=== PATIENT | female | born 1940 | race African-American/Black ===

== ENCOUNTER → 2018-02-19 | Outpatient (CLI) | payer MEDICARE, BC ==
[2018-02-19 11:29] LABS: Basophils # (auto) 0.1 uL; Basophils % (auto) 1.1 % (0.0-2.0); Eosinophils # (auto) 0.1 uL; Eosinophils % (auto) 1.5 % (0.0-7.0); Hematocrit 40.4 % (36.0-46.0); Hemoglobin 13.2 g/dL (12.2-16.2); Lymphocytes # (auto) 2.3 uL; Lymphocytes % (auto) 38.2 % (10.0-50.0); Mean Corpuscular Hgb Conc. 32.6 g/dL (32.0-36.0); Monocytes # (auto) 0.4 uL; Monocytes % (auto) 7.4 % (0.0-12.0); Neutrophils # (auto) 3.1 uL; Neutrophils % (auto) 51.8 % (37.0-80.0); Platelet Count (auto) 340 10^3/uL (140-450); Red Blood Cells 4.54 10^6/uL (4.0-5.20); Red Cell Distribution Width 15.8 % (11.8-14.3)
[2018-02-19 12:35] LABS: Albumin 3.6 g/dL (3.4-5.0); Bilirubin, Total 0.7 mg/dL (0.2-1.0); Calcium 9.2 mg/dL (8.5-10.1); Potassium 3.6 mmol/L (3.5-5.1); Total Protein 7.9 g/dL (6.4-8.2)
[2018-02-19 13:59] LABS: Ferritin 103.2 ng/mL (10-322)
[2018-02-19 14:01] LABS: Folate (Folic Acid) 14.64 ng/mL (5.38-24)
[2018-02-19 14:55] LABS: % Iron Saturation 25.8 % (15-50)
== END | disposition home or self-care (01) ==
LOC: LAB 10:11
PROVIDERS: ATTEND Psychiatry & Neurology Neurology
DX: E61.1 Iron deficiency (principal); I11.0 Hypertensive heart disease with heart failure; I50.9 Heart failure, unspecified
CPT/HCPCS: 36415; 80053; 82607; 82728; 82746; 82951; 83540; 83550; 84155; 84165; 85025

== ENCOUNTER 2018-02-20 07:18 | Emergency (ER) | payer MEDICARE, OTHER ==
[~2018-02-20] VITALS: Ht 165.1 cm; Wt 90.7 kg
[2018-02-20 08:29] LABS: Basophils # (auto) 0.1 uL; Eosinophils # (auto) 0.1 uL; Eosinophils % (auto) 1.7 % (0.0-7.0); Hematocrit 38.5 % (36.0-46.0); Hemoglobin 12.7 g/dL (12.2-16.2); Lymphocytes # (auto) 3.1 uL; Mean Corpuscular Hemoglobin 29.4 pg (28.0-32.0); Mean Corpuscular Volume 89.1 fL (80.0-100.0); Monocytes # (auto) 0.5 uL; Monocytes % (auto) 7.8 % (0.0-12.0); Neutrophils # (auto) 3.1 uL; Neutrophils % (auto) 44.5 % (37.0-80.0); Nucleated Red Blood Cells % 0.1 %; Platelet Count (auto) 336 10^3/uL (140-450); Red Blood Cells 4.32 10^6/uL (4.0-5.20); Red Cell Distribution Width 15.7 % (11.8-14.3); White Blood Cell 6.9 10^3/uL (4.4-10.8)
[2018-02-20 08:41] LABS: Alanine Aminotransferase 19 U/L (13-56); Albumin 3.4 g/dL (3.4-5.0); Alkaline Phosphatase 88 U/L (45-117); Anion Gap 10 (5-15); Aspartate Aminotransferase 13 U/L (15-37); BUN/Creatinine Ratio 9.2; Bilirubin, Total 0.5 mg/dL (0.2-1.0); Blood Urea Nitrogen 13 mg/dL (7-18); Calcium 8.7 mg/dL (8.5-10.1); Carbon Dioxide 26 mmol/L (21-32); Chloride 108 mmol/L (98-107); GFR African American 47 mL/min; GFR Non-African American 39 mL/min; Glucose 108 mg/dL (74-106); Potassium 3.6 mmol/L (3.5-5.1); Sodium 144 mmol/L (136-145); Total Protein 7.4 g/dL (6.4-8.2)
[2018-02-20] MEDS ORDERED: SODIUM CHLORIDE 0.9% 1,000 ML IV ONE (08:50)
[2018-02-20] MEDS ORDERED: PROMETHAZINE HCL 25 MG/ML 1ML IV ONE (09:00)
[2018-02-20] MEDS ORDERED: CYANOCOBALAMIN 500 MCG TAB PO ONE (09:00)
[2018-02-20] MEDS ORDERED: KETOROLAC TROMETH 30 MG/ML 1ML VIAL IV ONE (09:00)
[2018-02-20 11:30] VITALS: BP 159/81
[2018-02-20] MEDS ORDERED: THIAMINE INJ 100 MG, MULTIPLE VITAMIN 10 ML, FOLIC ACID 1 MG, MAGNESIUM SULF SDV 50% 8 ... IV ONE ×5 (12:00)
[2018-02-20 12:10] LABS: Urine Bacteria FEW /hpf (None Seen); Urine Blood Negative /uL (Negative); Urine Specific Gravity 1.007 (1.001-1.035); Urine WBC 4 /hpf (0 - 5)
== END 2018-02-20 12:58 | disposition home or self-care (01) ==
LOC: ER 07:18
DX: M54.12 Radiculopathy, cervical region (principal); N39.0 Urinary tract infection, site not specified; I11.0 Hypertensive heart disease with heart failure; I50.9 Heart failure, unspecified; Z90.89 Acquired absence of other organs
CPT/HCPCS: 36415; 71046; 72125; 80053; 81001; 84484; 85025; 93005; 94761; 96365; 96366; 96375; 99285; J1885; J2550; J3411; J3475; J7030

== ENCOUNTER 2018-02-24 10:41 | Emergency (ER) | payer MEDICARE, OTHER ==
[~2018-02-24] VITALS: Ht 165.1 cm; Wt 90.7 kg
[2018-02-24 11:51] VITALS: BP 168/80
== END 2018-02-24 12:39 | disposition home or self-care (01) ==
LOC: ER 10:45
DX: L23.89 Allergic contact dermatitis due to other agents (principal); I11.0 Hypertensive heart disease with heart failure; I50.9 Heart failure, unspecified; E78.5 Hyperlipidemia, unspecified; Z90.49 Acquired absence of other specified parts of digestive tract; W57.XXXA Bitten or stung by nonvenomous insect and other nonvenomous arthropods, initial encounter; Y93.89 Activity, other specified; Y99.8 Other external cause status; Y92.89 Other specified places as the place of occurrence of the external cause

== ENCOUNTER → 2018-04-29 | Outpatient (CLI) | payer MEDICARE, OTHER ==
[2018-04-29 13:01] LABS: % Iron Saturation 27.8 % (15-50)
== END | disposition home or self-care (01) ==
LOC: LAB 11:44
PROVIDERS: ATTEND Psychiatry & Neurology Neurology
DX: E61.1 Iron deficiency (principal)
CPT/HCPCS: 82728; 83540; 83550

== ENCOUNTER 2018-05-08 14:36 | Emergency (ER) | payer MEDICARE, OTHER ==
[~2018-05-08] VITALS: Ht 165.1 cm; Wt 90.7 kg
[2018-05-08 14:46] VITALS: BP 152/62
== END 2018-05-08 17:40 | disposition left against medical advice (07) ==
LOC: ER 14:36
DX: J00 Acute nasopharyngitis [common cold] (principal); Z53.21 Procedure and treatment not carried out due to patient leaving prior to being seen by health care provider

== ENCOUNTER 2018-06-04 11:17 | Emergency (ER) | payer MEDICARE, OTHER ==
[~2018-06-04] VITALS: Ht 165.1 cm; Wt 90.7 kg
[2018-06-04 11:31] VITALS: BP 173/75
[2018-06-04] MEDS ORDERED: KETOROLAC TROMETH 60MG/2ML VIAL IM ONE (12:30)
== END 2018-06-04 13:02 | disposition home or self-care (01) ==
LOC: ER 11:17
DX: M48.02 Spinal stenosis, cervical region (principal); M54.12 Radiculopathy, cervical region; E78.5 Hyperlipidemia, unspecified; I10 Essential (primary) hypertension; Z90.49 Acquired absence of other specified parts of digestive tract
CPT/HCPCS: 93005; 96372; 99283; J1885

== ENCOUNTER 2018-06-21 11:42 | Emergency (ER) | payer MEDICARE, OTHER ==
[~2018-06-21] VITALS: Ht 165.1 cm; Wt 93.9 kg
[2018-06-21 13:25] LABS: Basophils # (auto) 0.1 uL; Eosinophils # (auto) 0.1 uL; Eosinophils % (auto) 1.5 % (0.0-7.0); Hematocrit 42.5 % (36.0-46.0); Hemoglobin 13.8 g/dL (12.2-16.2); Lymphocytes # (auto) 3.9 uL; Lymphocytes % (auto) 50.3 % (10.0-50.0); Mean Corpuscular Hgb Conc. 32.4 g/dL (32.0-36.0); Mean Corpuscular Volume 89.5 fL (80.0-100.0); Monocytes # (auto) 0.5 uL; Monocytes % (auto) 6.2 % (0.0-12.0); Neutrophils # (auto) 3.1 uL; Nucleated Red Blood Cells % 0.1 %; Platelet Count (auto) 298 10^3/uL (140-450); Red Blood Cells 4.75 10^6/uL (4.0-5.20); Red Cell Distribution Width 15.7 % (11.8-14.3); White Blood Cell 7.7 10^3/uL (4.4-10.8)
[2018-06-21 13:37] LABS: Alanine Aminotransferase 22 U/L (13-56); Albumin 3.7 g/dL (3.4-5.0); Anion Gap 10 (5-15); Aspartate Aminotransferase 10 U/L (15-37); BUN/Creatinine Ratio 8.5; Blood Urea Nitrogen 13 mg/dL (7-18); Calcium 8.8 mg/dL (8.5-10.1); Carbon Dioxide 22 mmol/L (21-32); Chloride 105 mmol/L (98-107); GFR African American 42 mL/min; GFR Non-African American 35 mL/min; Glucose 104 mg/dL (74-106); Potassium 3.8 mmol/L (3.5-5.1); Sodium 137 mmol/L (136-145)
[2018-06-21] MEDS: KETOROLAC TROMETH 60MG/2ML VIAL IM ONE (14:20)
[2018-06-21 14:24] LABS: Alkaline Phosphatase 90 U/L (45-117); Bilirubin, Total 0.6 mg/dL (0.2-1.0); Total Protein 7.7 g/dL (6.4-8.2)
[2018-06-21 15:10] VITALS: BP 146/56
== END 2018-06-21 15:11 | disposition home or self-care (01) ==
LOC: ER 11:42
DX: G89.4 Chronic pain syndrome (principal); E78.5 Hyperlipidemia, unspecified; I10 Essential (primary) hypertension; Z90.89 Acquired absence of other organs
CPT/HCPCS: 36415; 71046; 80053; 84484; 85025; 93005; 96372; 99284; J1885

== ENCOUNTER 2018-07-27 12:54 | Emergency (ER) | payer BC, MEDICARE ==
[~2018-07-27] VITALS: Ht 165.1 cm; Wt 90.7 kg
[2018-07-27 13:15] VITALS: BP 148/58
== END 2018-07-27 22:29 | disposition home or self-care (01) ==
LOC: ER 12:54
DX: S73.102A Unspecified sprain of left hip, initial encounter (principal); E78.5 Hyperlipidemia, unspecified; I10 Essential (primary) hypertension; Z90.49 Acquired absence of other specified parts of digestive tract; W18.39XA Other fall on same level, initial encounter; Y93.89 Activity, other specified; Y99.8 Other external cause status; Y92.89 Other specified places as the place of occurrence of the external cause
CPT/HCPCS: 73700

== ENCOUNTER 2018-10-04 13:49 | Emergency (ER) | payer BC, MEDICARE ==
[~2018-10-04] VITALS: Ht 165.1 cm; Wt 90.7 kg
[2018-10-04 13:55] VITALS: BP 154/71
== END 2018-10-04 15:31 | disposition left against medical advice (07) ==
LOC: ER 13:50
DX: R21 Rash and other nonspecific skin eruption (principal); Z53.21 Procedure and treatment not carried out due to patient leaving prior to being seen by health care provider

== ENCOUNTER 2018-10-05 10:09 | Emergency (ER) | payer BC, MEDICARE, OTHER ==
[~2018-10-05] VITALS: Ht 165.1 cm; Wt 90.7 kg
[2018-10-05] MEDS ORDERED: MORPHINE SULF INJ 2 MG/ML SYRINGE 1ML IM ONE (11:00)
[2018-10-05] MEDS ORDERED: ACETAMINOPHEN 500 MG TAB PO ONE (11:00)
[2018-10-05] MEDS ORDERED: KETOROLAC TROMETH 60MG/2ML VIAL IM ONE (12:15)
[2018-10-05 13:17] VITALS: BP 142/70
== END 2018-10-05 13:19 | disposition home or self-care (01) ==
LOC: ER 10:13
DX: M79.605 Pain in left leg (principal); M79.604 Pain in right leg; I10 Essential (primary) hypertension; E78.5 Hyperlipidemia, unspecified; G89.29 Other chronic pain; M54.5 Low back pain; Z90.89 Acquired absence of other organs; Z90.49 Acquired absence of other specified parts of digestive tract
CPT/HCPCS: 72170; 73552; 73590; 93970; 96372; 99284; J1885

== ENCOUNTER 2019-03-20 14:33 | Emergency (ER) | payer MEDICARE, OTHER ==
[~2019-03-20] VITALS: Ht 165.1 cm; Wt 90.7 kg
[2019-03-20 15:22] VITALS: BP 138/70
[2019-03-20] MEDS ORDERED: ONDANSETRON ODT 4 MG TAB PO ONE (16:15)
[2019-03-20] MEDS ORDERED: HYDROmorphone HCL 2 MG/ML VL IM ONE (16:15)
== END 2019-03-20 16:46 | disposition home or self-care (01) ==
LOC: ER 14:33
DX: S46.912A Strain of unspecified muscle, fascia and tendon at shoulder and upper arm level, left arm, initial encounter (principal); M79.7 Fibromyalgia; G89.4 Chronic pain syndrome; I10 Essential (primary) hypertension; E78.5 Hyperlipidemia, unspecified; Z88.6 Allergy status to analgesic agent; X58.XXXA Exposure to other specified factors, initial encounter; Y93.89 Activity, other specified; Y92.89 Other specified places as the place of occurrence of the external cause; Y99.8 Other external cause status
CPT/HCPCS: 93005; 96372; 99283; J1170; Q0162

== ENCOUNTER 2019-08-17 16:12 | Emergency (ER) | payer MEDICARE ==
[~2019-08-17] VITALS: Ht 165.1 cm; Wt 92.5 kg
[2019-08-17 16:25] VITALS: BP 145/83
== END 2019-08-17 18:35 | disposition left against medical advice (07) ==
LOC: ER 16:12
DX: M25.552 Pain in left hip (principal); Z53.21 Procedure and treatment not carried out due to patient leaving prior to being seen by health care provider; W19.XXXA Unspecified fall, initial encounter; Y93.89 Activity, other specified; Y92.89 Other specified places as the place of occurrence of the external cause; Y99.8 Other external cause status

== ENCOUNTER 2019-08-18 11:54 | Emergency (ER) | payer MEDICARE ==
[~2019-08-18] VITALS: Ht 165.1 cm; Wt 92.5 kg
[2019-08-18 12:19] VITALS: BP 150/57
== END 2019-08-18 14:22 | disposition home or self-care (01) ==
LOC: ER 11:54
DX: M70.62 Trochanteric bursitis, left hip (principal); E78.5 Hyperlipidemia, unspecified; I10 Essential (primary) hypertension
CPT/HCPCS: 73502

== ENCOUNTER → 2019-10-29 | Emergency (ER) | payer MEDICARE ==
[~2019-10-29] VITALS: Ht 165.1 cm; Wt 90.7 kg
[2019-10-29 17:54] VITALS: BP 140/62
== END | disposition home or self-care (01) ==
LOC: ER 17:23
DX: M25.562 Pain in left knee (principal); M25.462 Effusion, left knee; M54.16 Radiculopathy, lumbar region; M19.90 Unspecified osteoarthritis, unspecified site; E78.5 Hyperlipidemia, unspecified; I10 Essential (primary) hypertension; Z88.5 Allergy status to narcotic agent
CPT/HCPCS: 93971

== ENCOUNTER 2019-12-26 11:25 | Emergency (ER) | payer MEDICARE ==
[~2019-12-26] VITALS: Ht 165.1 cm; Wt 90.7 kg
[2019-12-26 12:13] VITALS: BP 157/62
[2019-12-26] MEDS ORDERED: KETOROLAC TROMETH 60MG/2ML VIAL IM ONE (12:30)
== END 2019-12-26 13:04 | disposition home or self-care (01) ==
LOC: ER 11:25
DX: M25.562 Pain in left knee (principal); M25.462 Effusion, left knee; M54.16 Radiculopathy, lumbar region; N39.0 Urinary tract infection, site not specified; M19.90 Unspecified osteoarthritis, unspecified site; E78.5 Hyperlipidemia, unspecified; I10 Essential (primary) hypertension; Z88.5 Allergy status to narcotic agent
CPT/HCPCS: 96372; 99283; J1885

== ENCOUNTER 2020-02-16 16:02 | Emergency (ER) | payer MEDICARE ==
[~2020-02-16] VITALS: Ht 165.1 cm; Wt 89.8 kg
[2020-02-16] MEDS ORDERED: ONDANSETRON HCL 4 MG/2 ML VIAL IV ONE (16:30)
[2020-02-16 17:48] LABS: Albumin 4.4 g/dL (3.4-5.0); Calcium 10.5 mg/dL (8.5-10.1)
[2020-02-16 17:52] LABS: BUN/Creatinine Ratio 8.5; Bilirubin, Total 0.8 mg/dL (0.2-1.0); Total Protein 8.6 g/dL (6.4-8.2)
[2020-02-16 18:00] LABS: Potassium 2.9 mmol/L (3.5-5.1)
[2020-02-16 18:08] LABS: Basophils # (auto) 0.1 10 ^3/uL (0-0.2); Basophils % (auto) 1.3 % (0.0-2.0); Eosinophils # (auto) 0 10 ^3/uL (0-0.8); Eosinophils % (auto) 0.1 % (0.0-7.0); Hemoglobin 14.8 g/dL (12.2-16.2); Lymphocytes # (auto) 1.9 10 ^3/uL (0.4-5.4); Lymphocytes % (auto) 22.4 % (10.0-50.0); Mean Corpuscular Hemoglobin 28.5 pg (28.0-32.0); Mean Corpuscular Hgb Conc. 32.2 g/dL (32.0-36.0); Mean Corpuscular Volume 88.5 fL (80.0-100.0); Monocytes # (auto) 0.5 10 ^3/uL (0-1.3); Monocytes % (auto) 6.4 % (0.0-12.0); Neutrophils # (auto) 5.8 10 ^3/uL (1.6-8.6); Neutrophils % (auto) 69.8 % (37.0-80.0); Nucleated Red Blood Cells % 0.2 %; Platelet Count (auto) 334 10^3/uL (140-450); Red Cell Distribution Width 15.3 % (11.8-14.3); White Blood Cell 8.4 10^3/uL (4.4-10.8)
[2020-02-16] MEDS ORDERED: POTASSIUM CHL 20MEQ/100ML 100 ML IV ONE (18:15)
[2020-02-16 22:56] LABS: Hemoglobin 14.4 g/dL (12.2-16.2)
[2020-02-16 23:10] LABS: INR 1.02 (0.9-1.15); Partial Thromboplastin Time 28.2 sec (23.0-31.2)
[2020-02-17 01:00] VITALS: BP 135/51
[2020-02-17] MEDS ORDERED: ONDANSETRON HCL 4 MG/2 ML VIAL IV ONE (01:00)
[2020-02-17] MEDS ORDERED: SODIUM CHLORIDE 0.9% 1,000 ML IV ONE (01:00)
== END 2020-02-17 02:00 | disposition home or self-care (01) ==
LOC: ER 16:02
DX: E87.6 Hypokalemia (principal); R11.2 Nausea with vomiting, unspecified; R10.9 Unspecified abdominal pain; M19.90 Unspecified osteoarthritis, unspecified site; J44.9 Chronic obstructive pulmonary disease, unspecified; E78.5 Hyperlipidemia, unspecified; I10 Essential (primary) hypertension; Z88.5 Allergy status to narcotic agent
CPT/HCPCS: 36415; 74176; 80053; 83690; 85014; 85018; 85025; 85610; 85730; 96361; 96365; 96366; 96375; 96376; 99285; J2405; J3480; 93005

== ENCOUNTER 2021-02-08 13:15 | Emergency (ER) | payer MEDICARE, OTHER, BC ==
[~2021-02-08] VITALS: Ht 165.1 cm; Wt 90.7 kg
[2021-02-08 16:40] VITALS: BP 130/68
[2021-02-08] MEDS ORDERED: methylPREDNISolone SOD SUCC 125 MG/2 ML VL IM ONE (17:00)
== END 2021-02-08 17:18 | disposition home or self-care (01) ==
LOC: ER 13:15
DX: G89.29 Other chronic pain (principal); M79.642 Pain in left hand; M79.641 Pain in right hand; J44.9 Chronic obstructive pulmonary disease, unspecified; I10 Essential (primary) hypertension; E78.5 Hyperlipidemia, unspecified; Z90.49 Acquired absence of other specified parts of digestive tract; Z86.69 Personal history of other diseases of the nervous system and sense organs; Z90.89 Acquired absence of other organs; Z88.5 Allergy status to narcotic agent; Z88.8 Allergy status to other drugs, medicaments and biological substances
CPT/HCPCS: 93005; 96372; 99283; J2930

== ENCOUNTER 2021-03-15 16:18 | Emergency (ER) | payer MEDICARE, OTHER, BC ==
[~2021-03-15] VITALS: Ht 165.1 cm; Wt 77.1 kg
[2021-03-15] MEDS ORDERED: methylPREDNISolone SOD SUCC 125 MG/2 ML VL IV ONE (16:45)
[2021-03-15 16:56] LABS: Basophils # (auto) 0.1 10 ^3/uL (0-0.2); Basophils % (auto) 0.8 % (0.0-2.0); Eosinophils # (auto) 0.2 10 ^3/uL (0-0.8); Eosinophils % (auto) 2.4 % (0.0-7.0); Hematocrit 34.3 % (36.0-46.0); Lymphocytes # (auto) 2.6 10 ^3/uL (0.4-5.4); Lymphocytes % (auto) 38.4 % (10.0-50.0); Mean Corpuscular Hemoglobin 28.6 pg (28.0-32.0); Mean Corpuscular Hgb Conc. 32.1 g/dL (32.0-36.0); Monocytes # (auto) 0.7 10 ^3/uL (0-1.3); Monocytes % (auto) 9.6 % (0.0-12.0); Neutrophils # (auto) 3.3 10 ^3/uL (1.6-8.6); Neutrophils % (auto) 48.8 % (37.0-80.0); Red Blood Cells 3.85 10^6/uL (4.0-5.20); Red Cell Distribution Width 16.8 % (11.8-14.3); White Blood Cell 6.9 10^3/uL (4.4-10.8)
[2021-03-15 17:10] LABS: Alanine Aminotransferase 22 U/L (13-56); Anion Gap 7 (5-15); Aspartate Aminotransferase 20 U/L (15-37); BUN/Creatinine Ratio 9.5; Blood Urea Nitrogen 18 mg/dL (7-18); Calcium 9.2 mg/dL (8.5-10.1); Carbon Dioxide 27 mmol/L (21-32); Chloride 110 mmol/L (98-107); GFR African American 33 mL/min; GFR Non-African American 27 mL/min; Glucose 96 mg/dL (74-106); Magnesium 2.5 mg/dL (1.6-2.6); Potassium 3.9 mmol/L (3.5-5.1); Sodium 144 mmol/L (136-145)
[2021-03-15 17:15] LABS: Alkaline Phosphatase 103 U/L (45-117); Bilirubin, Total 0.3 mg/dL (0.2-1.0); Total Protein 6.7 g/dL (6.4-8.2)
[2021-03-15 18:00] VITALS: BP 122/58
[2021-03-15] MEDS ORDERED: methylPREDNISolone SOD SUCC 125 MG/2 ML VL IM ONE (18:00)
== END 2021-03-15 18:15 | disposition home or self-care (01) ==
LOC: ER 16:18
DX: J20.9 Acute bronchitis, unspecified (principal); J44.9 Chronic obstructive pulmonary disease, unspecified; I10 Essential (primary) hypertension; E78.5 Hyperlipidemia, unspecified; Z90.49 Acquired absence of other specified parts of digestive tract; Z90.89 Acquired absence of other organs
CPT/HCPCS: 36415; 71045; 80053; 83735; 83880; 84484; 85025; 93005; 99285; J2930

== ENCOUNTER 2021-06-16 15:42 | Emergency (ER) | payer MEDICARE ==
[~2021-06-16] VITALS: Ht 165.1 cm; Wt 81.6 kg
[2021-06-16] MEDS ORDERED: KETOROLAC TROMETH 60MG/2ML VIAL IM ONE (19:45)
[2021-06-16] MEDS ORDERED: methylPREDNISolone SOD SUCC 125 MG/2 ML VL IM ONE (19:45)
[2021-06-16 20:00] VITALS: BP 151/60
== END 2021-06-16 21:21 | disposition home or self-care (01) ==
LOC: ER 15:42
DX: G89.4 Chronic pain syndrome (principal); G62.89 Other specified polyneuropathies; M19.90 Unspecified osteoarthritis, unspecified site; E66.8 Other obesity; Z68.30 Body mass index [BMI] 30.0-30.9, adult
CPT/HCPCS: 96372; 99284; J1885; J2930

== ENCOUNTER 2021-10-22 13:47 | Emergency (ER) | payer MEDICARE ==
[~2021-10-22] VITALS: Ht 165.1 cm; Wt 81.6 kg
[2021-10-22] MEDS ORDERED: methylPREDNISolone SOD SUCC 125 MG/2 ML VL IM ONE (18:30)
[2021-10-22 18:35] VITALS: BP 155/73
[2021-10-22] MEDS ORDERED: MELO1TAB73 PO (18:38)
[2021-10-22] MEDS ORDERED: PRED20TA2 PO (18:38)
== END 2021-10-22 18:49 | disposition home or self-care (01) ==
LOC: ER 13:47
DX: M06.9 Rheumatoid arthritis, unspecified (principal); I10 Essential (primary) hypertension; E11.9 Type 2 diabetes mellitus without complications; E78.5 Hyperlipidemia, unspecified; J44.9 Chronic obstructive pulmonary disease, unspecified; Z90.49 Acquired absence of other specified parts of digestive tract; Z90.89 Acquired absence of other organs; Z79.899 Other long term (current) drug therapy; Z88.5 Allergy status to narcotic agent
CPT/HCPCS: 96372; 99283; J2930

== ENCOUNTER 2023-02-23 14:08 | Emergency (ER) | payer MEDICARE ==
[~2023-02-23] VITALS: Ht 162.6 cm; Wt 85.0 kg
[~2023-02-23 14:08] MED LIST: MELO7.5T7 PO; PRED20TA2 PO
[2023-02-23 15:25] LABS: Basophils # (auto) 0 10 ^3/uL (0-0.2); Basophils % (auto) 0.3 % (0.0-2.0); Eosinophils # (auto) 0.2 10 ^3/uL (0-0.8); Eosinophils % (auto) 2.3 % (0.0-7.0); Hematocrit 38.8 % (36.0-46.0); Hemoglobin 12.9 g/dL (12.2-16.2); Lymphocytes # (auto) 2.7 10 ^3/uL (0.4-5.4); Lymphocytes % (auto) 37.8 % (10.0-50.0); Mean Corpuscular Hemoglobin 29.1 pg (28.0-32.0); Mean Corpuscular Hgb Conc. 33.2 g/dL (32.0-36.0); Mean Corpuscular Volume 87.5 fL (80.0-100.0); Monocytes # (auto) 0.5 10 ^3/uL (0-1.3); Monocytes % (auto) 6.2 % (0.0-12.0); Neutrophils # (auto) 3.9 10 ^3/uL (1.6-8.6); Neutrophils % (auto) 53.4 % (37.0-80.0); Red Blood Cells 4.43 10^6/uL (4.0-5.20); Red Cell Distribution Width 16.5 % (11.8-14.3); White Blood Cell 7.2 10^3/uL (4.4-10.8)
[2023-02-23 15:48] LABS: Alanine Aminotransferase 10 U/L (7-40); Albumin 4.3 g/dL (3.2-4.8); Alkaline Phosphatase 109 U/L (46-116); Anion Gap 9.2 (5-15); Aspartate Aminotransferase < 8 U/L (13-40); BUN/Creatinine Ratio 10.1 (10.0-20.0); Bilirubin, Total 0.5 mg/dL (0.2-1.0); Blood Urea Nitrogen 12 mg/dL (9-23); Calcium 9.7 mg/dL (8.7-10.4); Carbon Dioxide 24.8 mmol/L (20-30); Chloride 109 mmol/L (98-107); Glucose 130 mg/dL (74-106); Potassium 3.1 mmol/L (3.5-5.1); Sodium 143 mmol/L (136-145); Total Protein 6.9 g/dL (5.7-8.2)
[2023-02-23] MEDS ORDERED: IOHEXOL 300 MG/ML 100ML BOTTLE IJ ONE (16:30)
[2023-02-23 16:37] LABS: Erythrocyte Sedimentation Rate 16 mm/hr (0-20)
[2023-02-23 17:11] LABS: CRP High Sensitivity 0.33 mg/dL (<1.0)
[2023-02-23] MEDS ORDERED: DexAMETHasone SOD PHOS 10MG/1ML VIAL INJ IV ONE (18:30)
[2023-02-23] MEDS ORDERED: KETOROLAC TROMETH 30 MG/ML 1ML VIAL IV ONE (18:30)
[2023-02-23 19:03] LABS: Urine Bacteria NONE SEEN /hpf (None Seen); Urine Blood Negative /uL (Negative); Urine Clarity Clear (Clear); Urine Color Colorless (Yellow); Urine Protein, UAD Negative (Negative); Urine Specific Gravity 1.042 (1.001-1.035); Urine Urobilinogen Normal (Negative); Urine WBC 4 /hpf (0 - 5); Urine pH 6.5 (5.0-8.0)
[2023-02-23 19:58] VITALS: BP 153/64; PULSE 92; RESP 17; TEMP 98.4; O2SAT 99
== END 2023-02-23 20:07 | disposition home or self-care (01) ==
LOC: ER 14:08
DX: M54.50 Low back pain, unspecified (principal); M19.90 Unspecified osteoarthritis, unspecified site; J44.9 Chronic obstructive pulmonary disease, unspecified; E11.9 Type 2 diabetes mellitus without complications; E78.5 Hyperlipidemia, unspecified; I10 Essential (primary) hypertension; Z90.49 Acquired absence of other specified parts of digestive tract; Z85.9 Personal history of malignant neoplasm, unspecified; Z90.89 Acquired absence of other organs; Z98.890 Other specified postprocedural states; Z88.5 Allergy status to narcotic agent; Z88.6 Allergy status to analgesic agent; Z79.899 Other long term (current) drug therapy
CPT/HCPCS: 36415; 72133; 80053; 81001; 83605; 84484; 85025; 85652; 86141; 87040; 93005; 96374; 96375; 99285; J1100; J1885; Q9967

== ENCOUNTER 2023-04-16 13:15 | Emergency (ER) | payer MEDICARE ==
[~2023-04-16] VITALS: Ht 165.1 cm; Wt 84.7 kg
[2023-04-16 13:15] VITALS: BP 158/73; PULSE 100; RESP 16; TEMP 98.3; O2SAT 97
[2023-04-16 14:15] LABS: Basophils # (auto) 0.1 10 ^3/uL (0-0.2); Basophils % (auto) 1.2 % (0.0-2.0); Eosinophils # (auto) 0.3 10 ^3/uL (0-0.8); Eosinophils % (auto) 4.4 % (0.0-7.0); Hematocrit 38.8 % (36.0-46.0); Lymphocytes # (auto) 3.1 10 ^3/uL (0.4-5.4); Lymphocytes % (auto) 54.6 % (10.0-50.0); Mean Corpuscular Hemoglobin 29.2 pg (28.0-32.0); Mean Corpuscular Hgb Conc. 33.5 g/dL (32.0-36.0); Mean Corpuscular Volume 87.1 fL (80.0-100.0); Monocytes # (auto) 0.5 10 ^3/uL (0-1.3); Monocytes % (auto) 8.1 % (0.0-12.0); Neutrophils # (auto) 1.8 10 ^3/uL (1.6-8.6); Neutrophils % (auto) 31.7 % (37.0-80.0); Red Blood Cells 4.45 10^6/uL (4.0-5.20); Red Cell Distribution Width 15.8 % (11.8-14.3); White Blood Cell 5.7 10^3/uL (4.4-10.8)
[2023-04-16 14:35] LABS: Alanine Aminotransferase 10 U/L (7-40); Albumin 4.3 g/dL (3.2-4.8); Alkaline Phosphatase 83 U/L (46-116); Anion Gap 6 (5-15); Aspartate Aminotransferase 9 U/L (13-40); Bilirubin, Total 0.7 mg/dL (0.2-1.0); Blood Urea Nitrogen 9 mg/dL (9-23); CRP High Sensitivity 0.08 mg/dL (<1.0); Calcium 9.8 mg/dL (8.5-10.1); Carbon Dioxide 28 mmol/L (20-30); Chloride 107 mmol/L (98-107); Glucose 92 mg/dL (74-106); Potassium 3.7 mmol/L (3.5-5.1); Sodium 141 mmol/L (136-145); Total Protein 7.2 g/dL (5.7-8.2)
[2023-04-16 14:52] LABS: Erythrocyte Sedimentation Rate 11 mm/hr (0-20)
[2023-04-16] MEDS ORDERED: ACETAMINOPHEN 500 MG TAB PO ONE (15:15)
[2023-04-16] MEDS ORDERED: KETOROLAC TROMETH 60MG/2ML VIAL IM ONE (15:15)
[2023-04-16] MEDS ORDERED: MEPERIDINE HCL (25 MG/ML) 1ML VIAL IM ONE (15:30)
[2023-04-16] MEDS ORDERED: LIDO5PAD8 EX (15:55)
[2023-04-16] MEDS ORDERED: PREG100C PO (16:03)
== END 2023-04-16 16:17 | disposition home or self-care (01) ==
LOC: ER 13:15
DX: M17.12 Unilateral primary osteoarthritis, left knee (principal); G89.29 Other chronic pain; I10 Essential (primary) hypertension; J44.9 Chronic obstructive pulmonary disease, unspecified; E11.9 Type 2 diabetes mellitus without complications; E78.5 Hyperlipidemia, unspecified; Z87.39 Personal history of other diseases of the musculoskeletal system and connective tissue; Z90.49 Acquired absence of other specified parts of digestive tract; Z90.89 Acquired absence of other organs; Z79.899 Other long term (current) drug therapy; Z88.8 Allergy status to other drugs, medicaments and biological substances
CPT/HCPCS: 36415; 73562; 80053; 83605; 83880; 84484; 85025; 85652; 86141

== ENCOUNTER 2023-06-15 11:12 | Emergency (ER) | payer MEDICARE ==
[~2023-06-15] VITALS: Ht 165.1 cm; Wt 84.0 kg
[~2023-06-15 11:12] MED LIST changes: +LIDO5PAD8 EX; +PREG100C PO
[2023-06-15 14:46] LABS: COVID19 ANTIGEN SOFIA FIA POSITIVE (NEGATIVE)
[2023-06-15 14:52] LABS: Rapid Influenza A Negative (Negative); Rapid Influenza B Negative (Negative)
[2023-06-15] MEDS ORDERED: ACET500T58 PO (16:09)
[2023-06-15] MEDS ORDERED: FLUT1SPR5 (16:11)
[2023-06-15] MEDS ORDERED: BENZ100C97 PO (16:11)
[2023-06-15 16:15] VITALS: BP 132/66; PULSE 90; RESP 18; TEMP 98.3; O2SAT 100
== END 2023-06-15 16:11 | disposition home or self-care (01) ==
LOC: ER 11:12
DX: U07.1 COVID-19 (principal); R51.9 Headache, unspecified; J44.9 Chronic obstructive pulmonary disease, unspecified; E11.9 Type 2 diabetes mellitus without complications; E78.5 Hyperlipidemia, unspecified; I10 Essential (primary) hypertension; Z98.51 Tubal ligation status
CPT/HCPCS: 36415; 87426; 87804

== ENCOUNTER 2024-01-24 02:01 | Emergency (ER) | payer MEDICARE ==
[~2024-01-24] VITALS: Ht 165.1 cm; Wt 87.6 kg
[~2024-01-24 02:01] MED LIST changes: +ACET500T58 PO; +BENZ100C97 PO; +FLUT1SPR5; +LIDO5PAD12 EX; -LIDO5PAD8 EX
[2024-01-24 02:55] VITALS: BP 155/96; TEMP 97.2; O2SAT 96
[2024-01-24 02:56] VITALS: PULSE 96; RESP 18
[2024-01-24] MEDS ORDERED: CEPH500T PO (03:07)
[2024-01-24] MEDS: HYDROcodone-ACET 5/325MG TAB PO ONE (03:41)
== END 2024-01-24 04:23 | disposition home or self-care (01) ==
LOC: ER 02:01
DX: L03.115 Cellulitis of right lower limb (principal); I10 Essential (primary) hypertension; E11.9 Type 2 diabetes mellitus without complications; E78.5 Hyperlipidemia, unspecified; J44.9 Chronic obstructive pulmonary disease, unspecified; Z88.6 Allergy status to analgesic agent; Z98.51 Tubal ligation status

== ENCOUNTER 2024-01-27 16:40 | Emergency (ER) | payer MEDICARE ==
[~2024-01-27] VITALS: Ht 165.1 cm; Wt 98.0 kg
[~2024-01-27 16:40] MED LIST changes: +CEPH500T PO
[2024-01-27 18:09] VITALS: PULSE 82; RESP 16; O2SAT 98
[2024-01-27] MEDS: LIDOCAINE VISCOUS 2% 15ML UD PO ONE (18:09)
[2024-01-27 18:39] LABS: Basophils # (auto) 0.1 10 ^3/uL (0-0.2); Basophils % (auto) 1.3 % (0.0-2.0); Eosinophils # (auto) 0.1 10 ^3/uL (0-0.8); Eosinophils % (auto) 1.8 % (0.0-7.0); Hematocrit 38.9 % (36.0-46.0); Hemoglobin 13.3 g/dL (12.2-16.2); Lymphocytes # (auto) 2.3 10 ^3/uL (0.4-5.4); Lymphocytes % (auto) 47.5 % (10.0-50.0); Mean Corpuscular Hgb Conc. 34.1 g/dL (32.0-36.0); Mean Corpuscular Volume 88.1 fL (80.0-100.0); Monocytes # (auto) 0.4 10 ^3/uL (0-1.3); Monocytes % (auto) 8.8 % (0.0-12.0); Neutrophils % (auto) 40.6 % (37.0-80.0); Nucleated Red Blood Cells % 0.1 %; Red Blood Cells 4.42 10^6/uL (4.0-5.20); Red Cell Distribution Width 15.5 % (11.8-14.3); White Blood Cell 4.9 10^3/uL (4.4-10.8)
[2024-01-27 18:59] LABS: Alanine Aminotransferase 16 U/L (7-40); Albumin 4.5 g/dL (3.2-4.8); Alkaline Phosphatase 89 U/L (46-116); Anion Gap 9 (5-15); Aspartate Aminotransferase 19 U/L (13-40); BUN/Creatinine Ratio 12.8 (10.0-20.0); Bilirubin, Total 0.6 mg/dL (0.2-1.0); Blood Urea Nitrogen 19 mg/dL (9-23); Calcium 10.7 mg/dL (8.7-10.4); Carbon Dioxide 28 mmol/L (20-30); Chloride 104 mmol/L (98-107); Glucose 107 mg/dL (74-106); Potassium 3.4 mmol/L (3.5-5.1); Sodium 141 mmol/L (136-145); Total Protein 7.1 g/dL (5.7-8.2)
[2024-01-27] MEDS ORDERED: ACET1CAP14 PO (19:43)
[2024-01-27] MEDS ORDERED: AUG875T PO (19:43)
[2024-01-27] MEDS: POTASSIUM EFFERVESENT TAB 25 MEQ PO ONE (20:46)
[2024-01-27 20:50] VITALS: BP 126/7; PULSE 88; RESP 16; TEMP 97.7; O2SAT 97
== END 2024-01-27 20:53 | disposition home or self-care (01) ==
LOC: ER 16:40
DX: S10.11XA Abrasion of throat, initial encounter (principal); J40 Bronchitis, not specified as acute or chronic; J44.9 Chronic obstructive pulmonary disease, unspecified; E78.5 Hyperlipidemia, unspecified; I10 Essential (primary) hypertension; Z88.5 Allergy status to narcotic agent; Z79.899 Other long term (current) drug therapy; Z79.52 Long term (current) use of systemic steroids; Z79.1 Long term (current) use of non-steroidal anti-inflammatories (NSAID); X58.XXXA Exposure to other specified factors, initial encounter; Y93.89 Activity, other specified; Y92.89 Other specified places as the place of occurrence of the external cause; Y99.8 Other external cause status
CPT/HCPCS: 36415; 70490; 71045; 80053; 83880; 84484; 85025

== ENCOUNTER 2024-02-23 14:10 | Emergency (ER) | payer MEDICARE ==
[~2024-02-23] VITALS: Ht 165.1 cm; Wt 81.0 kg
[~2024-02-23 14:10] MED LIST changes: +ACET1CAP14 PO; +AUG875T PO
[2024-02-23 14:23] VITALS: BP 156/68; PULSE 97; RESP 18; O2SAT 98
[2024-02-23 15:48] LABS: Chloride 105 mmol/L (98-107); Potassium 2.7 mmol/L (3.5-5.1); Sodium 140 mmol/L (136-145)
[2024-02-23 15:49] LABS: Anion Gap 7 (5-15); Calcium 10.4 mg/dL (8.7-10.4); Carbon Dioxide 28 mmol/L (20-30)
[2024-02-23 15:54] LABS: BUN/Creatinine Ratio 10.1 (10.0-20.0); Blood Urea Nitrogen 16 mg/dL (9-23); Glucose 119 mg/dL (74-106)
[2024-02-23 16:18] LABS: Basophils # (auto) 0.1 10 ^3/uL (0-0.2); Eosinophils # (auto) 0.1 10 ^3/uL (0-0.8); Eosinophils % (auto) 1.5 % (0.0-7.0); Hematocrit 38.5 % (36.0-46.0); Hemoglobin 13.4 g/dL (12.2-16.2); Lymphocytes # (auto) 2.2 10 ^3/uL (0.4-5.4); Lymphocytes % (auto) 37.1 % (10.0-50.0); Mean Corpuscular Hemoglobin 30.8 pg (28.0-32.0); Mean Corpuscular Hgb Conc. 34.9 g/dL (32.0-36.0); Mean Corpuscular Volume 88.3 fL (80.0-100.0); Monocytes # (auto) 0.5 10 ^3/uL (0-1.3); Neutrophils # (auto) 3.1 10 ^3/uL (1.6-8.6); Neutrophils % (auto) 52.4 % (37.0-80.0); Nucleated Red Blood Cells % 0.1 %; Platelet Count (auto) 268 10^3/uL (140-450); Red Blood Cells 4.36 10^6/uL (4.0-5.20); Red Cell Distribution Width 15.2 % (11.8-14.3)
[2024-02-23] MEDS ORDERED: POTASSIUM CHL 20MEQ/100ML 100 ML IV ONE (17:15)
[2024-02-23] MEDS ORDERED: POTASSIUM CHL 20 Meq TABLET PO ONE (20:45)
== END 2024-02-23 21:26 | disposition left against medical advice (07) ==
LOC: ER 14:10
DX: E87.6 Hypokalemia (principal); R53.1 Weakness; R06.02 Shortness of breath; I10 Essential (primary) hypertension; E78.5 Hyperlipidemia, unspecified; J44.9 Chronic obstructive pulmonary disease, unspecified; M19.90 Unspecified osteoarthritis, unspecified site; Z85.9 Personal history of malignant neoplasm, unspecified; Z98.890 Other specified postprocedural states; Z88.8 Allergy status to other drugs, medicaments and biological substances; Z79.899 Other long term (current) drug therapy
CPT/HCPCS: 36415; 80048; 85025

== ENCOUNTER 2024-03-09 15:41 | Emergency (ER) | payer MEDICARE ==
[~2024-03-09] VITALS: Ht 165.1 cm; Wt 91.0 kg
[2024-03-09] MEDS: HYDROmorphone HCL 2 MG/ML VL/or syr IM ONE (19:41)
[2024-03-09] MEDS: diphenhdrAMINE HCL 50 MG/1 ML VL IM ONE (19:47)
[2024-03-09] MEDS: ONDANSETRON HCL 4 MG/2 ML VIAL IM ONE (19:47)
[2024-03-09] MEDS: MORPHINE SULFATE INJ 2 MG/ml SYRG IM ONE (19:49)
[2024-03-09 19:59] VITALS: BP 138/56; PULSE 69; RESP 18; O2SAT 96
== END 2024-03-09 20:15 | disposition home or self-care (01) ==
LOC: ER 15:41
DX: M19.90 Unspecified osteoarthritis, unspecified site (principal); M79.643 Pain in unspecified hand; G89.29 Other chronic pain; M79.7 Fibromyalgia; M96.1 Postlaminectomy syndrome, not elsewhere classified; J44.9 Chronic obstructive pulmonary disease, unspecified; E78.5 Hyperlipidemia, unspecified; I10 Essential (primary) hypertension; Z98.51 Tubal ligation status; Z88.6 Allergy status to analgesic agent
CPT/HCPCS: 96372; 99284; J1200; J2270; J2405